=== PATIENT | male | born 1990 | race Caucasian/White ===

== ENCOUNTER 2020-02-11 02:37 | Emergency (ER) | payer OTHER ==
[~2020-02-11] VITALS: Ht 172.7 cm; Wt 81.6 kg
[2020-02-11 02:42] VITALS: BP 121/82
[2020-02-11] MEDS ORDERED: HYDROcodone/APAP 5/325 MG 1 TAB TAB PO ONE ×2 (02:55→05:05)
[2020-02-11] MEDS ORDERED: HYDROcodone/APAP 5/325 MG 1 TAB TAB ONE (05:03)
[2020-02-11 06:50] VITALS: BP 118/72
== END 2020-02-11 06:50 | disposition home or self-care (01) ==
LOC: MED 02:37
DX: S82.851A Displaced trimalleolar fracture of right lower leg, initial encounter for closed fracture (principal); W19.XXXA Unspecified fall, initial encounter; Y93.89 Activity, other specified; Y92.89 Other specified places as the place of occurrence of the external cause; Y99.8 Other external cause status
CPT/HCPCS: 27818; 73610; 99284; Q0092; 99283

== ENCOUNTER 2022-08-06 12:52 | Emergency (ER) | payer OTHER ==
[~2022-08-06] VITALS: Ht 175.3 cm; Wt 83.9 kg
[2022-08-06 13:09] VITALS: BP 120/74
[2022-08-06] MEDS ORDERED: KETOROLAC 30 MG/ML VIAL IM ONE ×2 (13:55→15:45)
[2022-08-06] MEDS ORDERED: [UNRECOGNIZED DRUG - CODE] PO (15:04)
[2022-08-06] MEDS ORDERED: ACET-8386 PO (15:04)
--- NOTE | 2022-08-06 15:55 | NUR ---
PER ER MID LEVEL, PT L LOWER HAND PLACED IN ULNAR GUTTER SPLINT. + CMS AFTER APPLICATION. PT L UPPER ARM PLACED IN SLING. + CMS AFTER APPLICATION. PT MOUTH ALSO IRRIGATED. PT ULNAR GUTTER SPLINT THEN WRAPPED WITH ZAHEER WRAP X 2 AND ROLLER GAUZE X 2.
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
[2022-08-06 16:11] VITALS: BP 146/86
--- NOTE | 2022-08-06 16:11 | NUR ---
Patient discharged with v/s stable. Written and verbal after care instructions given and explained. Patient alert, oriented and verbalized understanding of instructions. Ambulatory with steady gait. All questions addressed prior to discharge. ID band removed. Patient advised to follow up with PMD. Rx of NAPROXEN, NORCO 5-325 given. Patient educated on indication of medication including possible reaction and side effects. Opportunity to ask questions provided and answered.
[2022-08-06] MEDS ORDERED: LIDOCAINE MPF 1% 0 ML ONE (17:46)
[2022-08-06] MEDS ORDERED: BACITRACIN OINT 500 UNITS/GM PKT TP ONE (17:46)
== END 2022-08-06 16:11 | disposition home or self-care (01) ==
LOC: MED 12:52
DX: S62.617A Displaced fracture of proximal phalanx of left little finger, initial encounter for closed fracture (principal); S02.5XXA Fracture of tooth (traumatic), initial encounter for closed fracture; F17.210 Nicotine dependence, cigarettes, uncomplicated; Z79.899 Other long term (current) drug therapy; Y04.2XXA Assault by strike against or bumped into by another person, initial encounter; Y93.89 Activity, other specified; Y92.89 Other specified places as the place of occurrence of the external cause; Y99.8 Other external cause status
CPT/HCPCS: 29125; 73130; 96372; 99283; J1885; J2001